=== PATIENT | female | born 1965 | race Caucasian/White ===

== ENCOUNTER → 2020-11-05 | Outpatient (CLI) | payer OTHER ==
--- NOTE | 2020-11-06 09:27 | KCIC ---
Examination: MRI of the right shoulder without contrast HISTORY: History of right shoulder pain Comparison: None available TECHNIQUE: Multiplanar, multisequence MR imaging of the right shoulder performed without contrast. FINDINGS: Examination is limited due to motion artifact. The long head of the biceps tendon within the bicipital groove. The attachment of the long head the b iceps tendon to the superior labral anchor grossly appears intact. The attachment of the subscapulari s tendon grossly appears intact. There is full-thickness tear of the supraspinatus tendon with extension of fluid in the subacromial s ubdeltoid bursa. Moderate increased T2 signal identified in the supraspinatus, and infraspinatus tend on likely tendinosis. The acromion is type II. Moderate amount of fluid identified in the subacromion subdeltoid bursa. There is diffuse increased echogenicity identified throughout the labrum likely degenerative changes. There is obscuration of fat in the rotator interval. Moderate degenerative changes acromioclavicular joint, glenohumeral joint. IMPRESSION: 1. Full-thickness tear of the supraspinatus tendon with extension of fluid in the subacromial subdel toid bursa. Examination is limited due to motion artifact. Recommend MRI arthrogram for better evalua tion of tear. 2. Moderate rotator cuff tendinosis. 3. Moderate degenerative changes glenohumeral joint, acromioclavicular joint. 4. There is obscuration of fat in the rotator interval. Correlate for adhesive capsulitis. Electronically signed by: Benito Ramos MD (11/06/2020 9:25 AM) [id number]
== END ==
LOC: KCIC MRI 15:00
PROVIDERS: ATTEND Physician Assistant Medical
DX: M19.011 Primary osteoarthritis, right shoulder (principal)
CPT/HCPCS: 73221